=== PATIENT | female | born 1960 | race Caucasian/White ===

== ENCOUNTER → 2021-07-30 10:35 | Outpatient (CLI) | payer OTHER, SELFPAY ==
[2021-07-30 11:37] LABS: Hemoglobin A1C% w Est Avg Glu 5.8 % (4.0-6.0)
[2021-07-30 12:00] LABS: Alanine Aminotransferase 22 IU/L (<35); Albumin 4.6 g/dL (3.5-5.0); Albumin Globulin Ratio 1.4 (1.0-2.8); Alkaline Phosphatase 82 U/L (38-126); Aspartate Aminotransferase 28 IU/L (14-36); BUN Creatinine Ratio 21.7 (6-22); Bilirubin Total 0.4 mg/dL (0.2-1.3); Blood Urea Nitrogen 13 mg/dL (7-17); Calcium 9.8 mg/dL (8.4-10.2); Carbon Dioxide 33 mmol/L (22-32); Chloride 102 mmol/L (98-107); Cholesterol 215 mg/dL (140-199); Estimated Glomerular Filt Rate > 60.0 mL/min (>60); Globulin 3.2 g/dL (1.7-4.1); Glucose 95 mg/dL (80-110); HDL Cholesterol 41 mg/dL (40-60); HEMOLYSIS < 15 (0-50); LDL Cholesterol Calculated 153 mg/dL (<100); Potassium 5.3 mmol/L (3.4-5.1); Sodium 140 mmol/L (137-145); Total Protein 7.8 g/dL (6.3-8.2); Triglycerides 106 mg/dL (35-150)
[2021-07-30 12:21] LABS: Free T4, Direct Thyroxine 0.99 ng/dL (0.78-2.19)
[2021-07-30 12:35] LABS: Thyroid Stimulating Hormone 0.491 uIU/mL (0.47-4.68)
== END ==
PROVIDERS: PCP Internal Medicine; Referring Provider Internal Medicine; Visit Provider Internal Medicine
DX: E03.9 Hypothyroidism, unspecified (principal); E11.9 Type 2 diabetes mellitus without complications; G89.29 Other chronic pain; I10 Essential (primary) hypertension; M54.9 Dorsalgia, unspecified
CPT/HCPCS: 36415; 80053; 80061; 83036; 84439; 84443

== ENCOUNTER → 2021-08-03 13:46 | Outpatient (CLI) | payer OTHER, SELFPAY ==
[2021-08-03 15:11] LABS: COVID19 -Nasal RAPID Negative (Negative)
== END ==
PROVIDERS: PCP Internal Medicine; Visit Provider Family Medicine Sleep Medicine
DX: Z20.822 Contact with and (suspected) exposure to COVID-19 (principal)
CPT/HCPCS: 87635; C9803

== ENCOUNTER → 2021-08-06 07:07 | Day surgery (SDC) | payer OTHER, SELFPAY ==
--- NOTE | 2021-08-06 | PATH_ITS ---
[facility] Accession Number: [id number] . 01 Material submitted: . PART A: hepatic flexure - HEPATIC FLEXURE COLON POLYP PART B: rectum - RECTAL POLYP . 02 Diagnosis: A. Colon Polyp, Hepatic Flexure, Biopsy: Serrated lesion, favor sessile serrated adenoma. . B. Rectal Polyp, Biopsy: Hyperplastic polyp. BFI 08/08/2021 1535 Local . 02 Electronically signed: . David Porter MD, PhD, Pathologist NPI- [id number] . 01 Gross description: . Part A: HEPATIC FLEXURE COLON POLYP: Received in formalin is 1 fragment(s) of montoya, soft tissue measuring 0.2 x 0.2 x 0.1 cm submitted entirely in 1 cassette(s) Part B: RECTAL POLYP: Received in formalin is 1 fragment(s) of montoya, soft tissue measuring 0.2 x 0.1 x 0.1 cm submitted entirely in 1 cassette(s) /CPE 08/07/2021 1116 Local . 02 Pathologist provided ICD-10: D12.3, K62.1 . 02 CPT . 757640, [id number] Specimen Comment: A courtesy copy of this report has been sent to [facility] Performed at: [address] [facility] [address], [place], [place] [id number] MD Yordan Grajeda MD Phone: [phone] Performed at: 02 [facility] [address] [place], [place] [id number] MD Patricia Malloy MD Phone: [phone]
[2021-08-06 07:27] VITALS: BP 172/93; PULSE 83; RESP 18; TEMP 36.8; O2SAT 99; BMI 33.4
[2021-08-06] MEDS: SODIUM CHLORIDE 0.9% 1,000 ML 84 ML IV (07:48)
--- NOTE | 2021-08-06 08:05 | PM.HP.1 ---
History of Present Illness History of Present Illness Date Patient Seen: 08/06/21 Time Patient Seen: 08:06 Chief complaint: DX COLONOSCOPY Narrative: Personal history of colon polyps and rectal carcinoid Patient History Medical History Abnormal Pap smear of cervix Allergies Chicken pox Chronic back pain (~2016) Diabetes mellitus (~05/2020) Foot pain (~2016) H/O adenomatous polyp of colon Hearing loss Hypertension (~2020) Hyperthyroidism Hypothyroidism Kidney stones (~2004) Recurrent sinusitis Restless leg syndrome Sleep apnea (~2015) Surgical History Anesthesia History of lumbosacral spine surgery (~06/19/20) Family & Social History Family History Father Mental health problem Brother Cancer Grandfather History of heart disease Social History: household members spouse Tobacco & Substance use: Smoking Status Current every day smoker alcohol intake never Substance Use Type marijuana Meds Home Medications and Allergies Home Medications Medication Instructions Recorded Confirmed Type metformin 500 mg tablet 500 mg PO BID #180 tab 08/03/21 08/06/21 Rx Allergies Allergy/AdvReac Type Severity Reaction Status Date / Time sulfamethoxazole Allergy Severe Hives Verified 08/06/21 07:16 [From Septra] trimethoprim [From Septra] Allergy Severe Hives Verified 08/06/21 07:16 Erythromycin AdvReac Intermediate GI Upset Uncoded 08/06/21 07:16 Review of Systems Review of Systems ROS: Yes All systems reviewed with the patient and are negative except as otherwise documented Exam Vital Signs (past 8 hours): - 08/06/21 07:27 Temperature 98.3 F Pulse Rate 83 Respiratory Rate 18 Blood Pressure 172/93 H Pulse Oximetry 99 Oxygen Delivery Method Room Air Const General: cooperative and comfortable Orientation: alert HENMT Head: normocephalic Ears: external ears normal Nose: external nose normal Face and sinus: normal facial exam Mouth: oral mucosae normal Eyes General: appearance normal, both eyes and all related structures Neck Neck: normal visual inspection Chest Chest: normal inspection of the chest Cardio Rate: regular rate GI Inspection: normal to inspection Skin General: no rashes or lesions noted and No jaundice Neuro General: patient alert and moves all extremities Cognition: normal cognition Speech: speech normal Extrem General: no pedal edema Psych Appearance: grossly normal Assessment & Plan Assessment & Plan narrative: 61-year-old female with a polyp history and rectal carcinoid history. Repeat colonoscopy is pursued today. Time Spent With Patient Critical Care time: I spent a total of [] minutes of critical care time on this patient's care today; this time is exclusive of procedural time.
--- NOTE | 2021-08-06 08:07 | PM.PREOP ---
Pre-operative Note COVID-19 COVID-19 status: Negative Result date/Date tested (Pos, Neg/Pending): 08/03/21 Criteria for continued procedure: Possibility delay results in more complex future surgery or treatment Interval Note History & Physical reviewed/Exam performed by Physician: Yes Changes to H&P: Yes ASA Class (for procedural sedation): II
--- NOTE | 2021-08-06 09:28 | P.OP.COLON_ITS ---
Operative Date/Time/Diagnoses Date of procedure: 08/06/21 Time of procedure: 09:28 Pre-op diagnosis: Colon polyps and a history of low-grade rectal carcinoid Post-op diagnosis: same Procedure & Clinicians Study performed: Colonoscopy with cold forceps polypectomy Same procedure as scheduled: Yes Indications: Colon polyps and low-grade small rectal carcinoid Surgeon: Mickey Bonds Procedure Notes SCOAP/Timeout: Done Procedure in detail: After the risks and benefits were explained, written and verbal informed consent was obtained. The patient was brought into the procedure room and placed into the left lateral decubitus position. Please see nurse nursing information systems coordinator notes for sedation details. Digital rectal examination was accomplished. The scope was introduced into the patient and advanced under direct visualization to the cecum as identified by the appendiceal orifice and ileocecal valve. The scope was slowly withdrawn to carefully examine the mucosa for any defects or lesions. Comprehensive imaging was accomplished throughout the rectum including the dentate line. The colon was decompressed, the scope was then removed from the patient who tolerated the procedure well. Bowel prep fair Pediatric colonoscope Scope withdrawal time: 9 minutes Sedation minutes: 22 Complications: none Impression: I did not appreciate any evidence of recurrent or residual rectal carcinoid. There was a very small polyp in the distal rectum that was addressed with cold forceps this measured in maximum dimension 4 mm. In the region of the hepatic flexure there was another 4-5 mm diminutive polyp that was removed with cold forceps. Within the limitations of bowel prep I did not see any additional pathology. Terminal ileum was interrogated and appeared normal. Endoscopic diagnosis 1. Diminutive rectal polyp 2. Diminutive hepatic flexure polyp Post-procedure Plan for aftercare: 1. Await histopathology 2. Considering personal history of adenomatous colon polyps and the only fair prep today, repeat colonoscopy would be suggested for 3 years. Disposition: PACU
[2021-08-06 09:29] VITALS: BP 112/66; PULSE 71; RESP 16; TEMP 36.8; O2SAT 98
[2021-08-06 09:35] VITALS: BP 108/63; PULSE 68; RESP 16; TEMP 36.4; O2SAT 98
[2021-08-06 09:40] VITALS: BP 125/64; PULSE 70; RESP 16; O2SAT 98
[2021-08-06 09:46] VITALS: BP 130/72; PULSE 77; RESP 16; TEMP 36.4; O2SAT 100
== END | disposition home or self-care (01) ==
PROVIDERS: PCP Internal Medicine; Referring Provider Internal Medicine Gastroenterology; Visit Provider Internal Medicine Gastroenterology
PROC: 0DJD8ZZ Inspection of Lower Intestinal Tract, Via Natural or Artificial Opening Endoscopic (ICD-10-PCS; CPT 45378; principal; 2021-08-06 09:00)
DX: Z12.11 Encounter for screening for malignant neoplasm of colon (principal); Z86.010 Personal history of colon polyps; Z85.040 Personal history of malignant carcinoid tumor of rectum; I10 Essential (primary) hypertension; G47.33 Obstructive sleep apnea (adult) (pediatric); G25.81 Restless legs syndrome; E11.9 Type 2 diabetes mellitus without complications; F17.210 Nicotine dependence, cigarettes, uncomplicated; Z79.84 Long term (current) use of oral hypoglycemic drugs; D12.3 Benign neoplasm of transverse colon; K62.1 Rectal polyp
CPT/HCPCS: 45380

== ENCOUNTER → 2021-11-28 11:11 | Outpatient (CLI) | payer OTHER, SELFPAY ==
[2021-11-28 11:52] LABS: Hemoglobin A1C% w Est Avg Glu 6.1 % (4.0-6.0)
[2021-11-28 12:38] LABS: BUN Creatinine Ratio 21.2 (6-22); Blood Urea Nitrogen 11 mg/dL (7-17); Calcium 9.2 mg/dL (8.4-10.2); Carbon Dioxide 29 mmol/L (22-32); Chloride 102 mmol/L (98-107); Estimated Glomerular Filt Rate > 60 mL/min (>60); Glucose 130 mg/dL (80-110); HEMOLYSIS < 15 (0-50); Potassium 4.4 mmol/L (3.4-5.1); Sodium 139 mmol/L (137-145)
== END ==
PROVIDERS: PCP Internal Medicine; Referring Provider Internal Medicine; Visit Provider Internal Medicine
DX: E11.9 Type 2 diabetes mellitus without complications (principal); I10 Essential (primary) hypertension
CPT/HCPCS: 36415; 80048; 83036

== ENCOUNTER → 2022-04-04 12:04 | Outpatient (CLI) | payer OTHER, SELFPAY ==
[2022-04-04 12:41] LABS: BUN Creatinine Ratio 23.1 (6-22); Blood Urea Nitrogen 12 mg/dL (7-17); Calcium 9.3 mg/dL (8.4-10.2); Carbon Dioxide 29 mmol/L (22-32); Chloride 99 mmol/L (98-107); Estimated Glomerular Filt Rate > 60 mL/min (>60); Glucose 129 mg/dL (80-110); HEMOLYSIS < 15 (0-50); Potassium 4.3 mmol/L (3.4-5.1); Sodium 138 mmol/L (137-145)
[2022-04-04 12:47] LABS: Hemoglobin A1C% w Est Avg Glu 6.8 % (4.0-6.0)
== END ==
PROVIDERS: PCP Internal Medicine; Referring Provider Internal Medicine; Visit Provider Internal Medicine
DX: E11.65 Type 2 diabetes mellitus with hyperglycemia (principal)
CPT/HCPCS: 36415; 80048; 83036

== ENCOUNTER → 2022-05-27 13:37 | Outpatient (CLI) | payer OTHER, SELFPAY ==
--- NOTE | 2022-05-27 | DI.RAD.S_ITS ---
PROCEDURE: XR LUMBAR SPINE MIN 4V INDICATIONS: LOW BACK PAIN TECHNIQUE: 5 views of the lumbar spine were acquired, including bilateral oblique views. COMPARISON: None. FINDINGS: Bones: 5 nonrib-bearing vertebrae are present. There is trace retrolisthesis of L2 on L3, L3 on L4. Posterior fusion is present from L4 through S1. No visualized hardware fracture. Foraminal narrowing is present at L5-S1.. No vertebral body compression fractures. No suspicious bony lesions. Soft tissues: Overlying bowel gas pattern is normal. No suspicious soft tissue calcifications. Oblique images: No pars defects. IMPRESSION: Postsurgical and degenerative changes as above. Dictated by: Kandy Robles M.D. on 05/27/2022 at 16:15 Approved by: Kandy Robles M.D. on 05/27/2022 at 16:16
== END ==
PROVIDERS: PCP Internal Medicine; Referring Provider Orthopaedic Surgery; Visit Provider Orthopaedic Surgery
DX: M48.07 Spinal stenosis, lumbosacral region (principal); M54.50 Low back pain, unspecified; Z98.1 Arthrodesis status
CPT/HCPCS: 72110

== ENCOUNTER → 2022-07-15 13:35 | Outpatient (CLI) | payer OTHER, SELFPAY ==
[2022-07-15 14:11] LABS: Blood Urea Nitrogen 14 mg/dL (7-17); Calcium 9.2 mg/dL (8.4-10.2); Carbon Dioxide 26 mmol/L (22-32); Chloride 98 mmol/L (98-107); Cholesterol 256 mg/dL (140-199); Estimated Glomerular Filt Rate > 60 mL/min (>60); Glucose 150 mg/dL (80-110); HDL Cholesterol 43 mg/dL (40-60); HEMOLYSIS < 15 (0-50); Hemoglobin A1C% w Est Avg Glu 7.2 % (4.0-6.0); LDL Cholesterol Calculated 176 mg/dL (<100); Potassium 4.4 mmol/L (3.4-5.1); Sodium 137 mmol/L (137-145); Triglycerides 184 mg/dL (35-150)
[2022-07-15 16:34] LABS: Microalbumin Urine Random 1.2 mg/dL (0-1.6)
[2022-07-15 16:41] LABS: Creatinine Urine Random 138.8 mg/dL; Microalbumi Creatinin Ratio Ur 8.6 ug/mg CR (<30)
== END ==
PROVIDERS: PCP Internal Medicine; Referring Provider Internal Medicine; Visit Provider Internal Medicine
DX: E11.9 Type 2 diabetes mellitus without complications (principal); I10 Essential (primary) hypertension; Z13.6 Encounter for screening for cardiovascular disorders
CPT/HCPCS: 36415; 80048; 80061; 82043; 82570; 83036

== ENCOUNTER → 2022-08-23 09:51 | Outpatient (CLI) | payer OTHER, SELFPAY ==
--- NOTE | 2022-08-23 09:53 | DI.MG.S_ITS ---
BILATERAL DIGITAL SCREENING MAMMOGRAM 3D/2D WITH CAD: 08/23/2022 CLINICAL: Routine screening. Comparison is made to exam dated: 10/05/2020 mammogram - outside location. Both breasts are almost entirely fatty (category a/<25% glandular tissue). Current study was also evaluated with a Computer Aided Detection (CAD) system. No significant masses, calcifications, or other findings are seen in either breast. There has been no significant interval change. IMPRESSION: NEGATIVE There is no mammographic evidence of malignancy. A 1 year screening mammogram is recommended. Based on the Tyrer Cuzick model (a risk assessment model) the patient's lifetime risk is 4.0% and her 10 year risk is 1.6%. According to the ACR, ACS, and NCCN guidelines, an annual breast MRI exam along with mammogram is recommended if the patient's lifetime risk is 20% or greater. This exam was interpreted at Station ID: [id number]. NOTE: For mammograms, a report in lay terms will be sent to the patient. Approximately 15% of breast malignancies will not be visualized mammographically. In the management of a palpable breast mass, a negative mammogram must not discourage biopsy of a clinically suspicious lesion. Electronically Signed By: Anjel garza/hans:08/23/2022 15:53:46 letter sent: Normal Exam ACR BI-RADS Category 1: Negative [id number]
--- NOTE | 2022-08-23 09:53 | DI.US.S_ITS ---
PROCEDURE: US ABDOMEN LIMITED INDICATIONS: RIGHT UPPER QUADRANT PAIN TECHNIQUE: Real-time scanning was performed of the abdominal and retroperitoneal organs, with image documentation. COMPARISON: None. FINDINGS: Liver: Increased liver echogenicity with posterior attenuation, most consistent with moderate to severe steatosis. Gallbladder: Unremarkable. Biliary ducts: Intrahepatic bile ducts are non-dilated. Extrahepatic bile duct caliber measures 3 mm. Normal is 6-7 mm or less in diameter, or 10 mm or less post-cholecystectomy. Pancreas: Visualized portions of the pancreas are sonographically normal. IMPRESSION: [id number] hepatic steatosis. No findings to explain the patient's right upper quadrant pain. Dictated by: Adryan Smith M.D. on 08/23/2022 at 12:04 Approved by: Adryan Smith M.D. on 08/23/2022 at 12:05
== END ==
PROVIDERS: PCP Internal Medicine; Referring Provider Internal Medicine; Visit Provider Internal Medicine
DX: Z12.31 Encounter for screening mammogram for malignant neoplasm of breast (principal); K76.0 Fatty (change of) liver, not elsewhere classified; R10.11 Right upper quadrant pain
CPT/HCPCS: 76705; 77063; 77067

== ENCOUNTER → 2022-10-11 09:20 | Outpatient (CLI) | payer OTHER, SELFPAY ==
[2022-10-11 10:07] LABS: Alanine Aminotransferase 44 IU/L (<35); Albumin 4.1 g/dL (3.5-5.0); Albumin Globulin Ratio 1.5 (1.0-2.8); Alkaline Phosphatase 128 U/L (38-126); Aspartate Aminotransferase 35 IU/L (14-36); BUN Creatinine Ratio 22.7 (6-22); Bilirubin Total 0.3 mg/dL (0.2-1.3); Blood Urea Nitrogen 10 mg/dL (7-17); Calcium 9.2 mg/dL (8.4-10.2); Carbon Dioxide 29 mmol/L (22-32); Chloride 100 mmol/L (98-107); Cholesterol 137 mg/dL (140-199); Estimated Glomerular Filt Rate > 60 mL/min (>60); Globulin 2.7 g/dL (1.7-4.1); Glucose 190 mg/dL (80-110); HDL Cholesterol 41 mg/dL (40-60); HEMOLYSIS < 15 (0-50); LDL Cholesterol Calculated 75 mg/dL (<100); Sodium 138 mmol/L (137-145); Total Protein 6.8 g/dL (6.3-8.2); Triglycerides 103 mg/dL (35-150)
[2022-10-12 03:40] LABS: Labcorp Hemoglobin (Hb) A1c 8.5 % (4.8-5.6)
== END ==
PROVIDERS: PCP Internal Medicine; Referring Provider Internal Medicine; Visit Provider Internal Medicine
DX: E11.9 Type 2 diabetes mellitus without complications (principal); E78.2 Mixed hyperlipidemia; I10 Essential (primary) hypertension
CPT/HCPCS: 36415; 80053; 80061; 83036

== ENCOUNTER → 2023-01-09 11:16 | Outpatient (CLI) | payer OTHER, SELFPAY ==
[2023-01-09 13:41] LABS: BUN Creatinine Ratio 15.9 (6-22); Blood Urea Nitrogen 7 mg/dL (7-17); Calcium 9.1 mg/dL (8.4-10.2); Carbon Dioxide 30 mmol/L (22-32); Chloride 99 mmol/L (98-107); Estimated Glomerular Filt Rate > 60 mL/min (>60); Glucose 157 mg/dL (80-110); HEMOLYSIS < 15 (0-50); Potassium 4.8 mmol/L (3.4-5.1); Sodium 137 mmol/L (137-145)
[2023-01-10 09:17] LABS: Labcorp Hemoglobin (Hb) A1c 8.3 % (4.8-5.6)
== END ==
PROVIDERS: PCP Internal Medicine; Referring Provider Internal Medicine; Visit Provider Internal Medicine
DX: E11.9 Type 2 diabetes mellitus without complications (principal); E78.2 Mixed hyperlipidemia; I10 Essential (primary) hypertension
CPT/HCPCS: 36415; 80048; 83036

== ENCOUNTER → 2023-04-11 10:31 | Outpatient (CLI) | payer OTHER, SELFPAY ==
[2023-04-11 11:42] LABS: Hemoglobin A1C% w Est Avg Glu 8.5 % (4.0-6.0)
[2023-04-11 11:48] LABS: Alanine Aminotransferase 59 IU/L (<35); Albumin 4.2 g/dL (3.5-5.0); Albumin Globulin Ratio 1.4 (1.0-2.8); Alkaline Phosphatase 105 U/L (38-126); Aspartate Aminotransferase 56 IU/L (14-36); BUN Creatinine Ratio 25.5 (6-22); Bilirubin Total 0.4 mg/dL (0.2-1.3); Blood Urea Nitrogen 12 mg/dL (7-17); Calcium 9.6 mg/dL (8.4-10.2); Carbon Dioxide 28 mmol/L (22-32); Chloride 102 mmol/L (98-107); Cholesterol 132 mg/dL (140-199); Estimated Glomerular Filt Rate > 60 mL/min (>60); Glucose 187 mg/dL (80-110); HDL Cholesterol 33 mg/dL (40-60); HEMOLYSIS < 15 (0-50); LDL Cholesterol Calculated 76 mg/dL (<100); Potassium 4.4 mmol/L (3.4-5.1); Sodium 138 mmol/L (137-145); Total Protein 7.2 g/dL (6.3-8.2); Triglycerides 114 mg/dL (35-150)
[2023-04-11 12:17] LABS: TSH w/ Reflex to FT4 0.32 uIU/mL (0.47-4.68)
[2023-04-11 12:45] LABS: Free T4, Direct Thyroxine 1.02 ng/dL (0.78-2.19)
== END ==
PROVIDERS: PCP Internal Medicine; Referring Provider Internal Medicine; Visit Provider Internal Medicine
DX: E78.2 Mixed hyperlipidemia (principal); E11.9 Type 2 diabetes mellitus without complications; I10 Essential (primary) hypertension
CPT/HCPCS: 36415; 80053; 80061; 83036; 84439; 84443

== ENCOUNTER → 2023-07-16 12:38 | Outpatient (CLI) | payer OTHER, SELFPAY ==
[2023-07-16 13:24] LABS: Hemoglobin A1C% w Est Avg Glu 8.1 % (4.0-6.0)
[2023-07-16 18:42] LABS: BUN Creatinine Ratio 31.1 (6-22); Blood Urea Nitrogen 14 mg/dL (7-17); Calcium 9.6 mg/dL (8.4-10.2); Carbon Dioxide 26 mmol/L (22-32); Chloride 102 mmol/L (98-107); Estimated Glomerular Filt Rate > 60 mL/min (>60); Glucose 175 mg/dL (80-110); HEMOLYSIS < 15 (0-50); Potassium 4.2 mmol/L (3.4-5.1); Sodium 137 mmol/L (137-145)
== END ==
LOC: LAB 12:38
PROVIDERS: PCP Internal Medicine; Referring Provider Internal Medicine; Visit Provider Internal Medicine
DX: E11.9 Type 2 diabetes mellitus without complications (principal); E78.2 Mixed hyperlipidemia; I10 Essential (primary) hypertension
CPT/HCPCS: 36415; 80048; 83036

== ENCOUNTER 2023-08-11 13:03 | Emergency (ER) | payer OTHER, SELFPAY ==
[2023-08-11] VITALS (7 sets, daily range): BP systolic 132–173; BP diastolic 63–79; PULSE 72–112; RESP 16–20; TEMP 36.7–36.9; O2SAT 95–98; BMI 37.5
[2023-08-11 13:53] LABS: Add Manual Diff / Slide Review NO; Basophils Absolute Auto 100 /uL (0-100); Basophils Percent Auto 0.5 % (0-2); Eosinophils Absolute Auto 100 /uL (0-450); Eosinophils Percent Auto 1.3 % (2-4); Hematocrit 43.1 % (36-46); Hemoglobin 14.5 g/dL (12.0-16.0); Lymphocytes Absolute Auto 3200 /uL (1100-4500); Lymphocytes Percent Auto 28.3 % (25-40); Mean Corpuscular HGB Conc 33.6 % (30-36); Mean Corpuscular Hemoglobin 29.7 PG (26-34); Mean Corpuscular Volume 88.3 fL (80-100); Monocytes Absolute Auto 700 /uL (0-900); Monocytes Percent Auto 6.3 % (3-14); Neutrophils Absolute Auto 7200 /uL (1500-7000); Neutrophils Percent Auto 63.6 % (50-75); Platelet Count 279 X10^3/uL (150-400); Red Blood Cell Count 4.88 X10^6/uL (4.0-5.2); Red Cell Distribution Width 13.2 % (11.6-14.8); White Blood Cell Count 11.3 X10^3/uL (4.5-11.0)
[2023-08-11 13:57] LABS: Alanine Aminotransferase 51 IU/L (<35); Albumin 4.5 g/dL (3.5-5.0); Albumin Globulin Ratio 1.3 (1.0-2.8); Alkaline Phosphatase 115 U/L (38-126); Aspartate Aminotransferase 54 IU/L (14-36); BUN Creatinine Ratio 22.9 (6-22); Bilirubin Total 0.7 mg/dL (0.2-1.3); Blood Urea Nitrogen 11 mg/dL (7-17); Calcium 9.6 mg/dL (8.4-10.2); Carbon Dioxide 27 mmol/L (22-32); Chloride 100 mmol/L (98-107); Estimated Glomerular Filt Rate > 60 mL/min (>60); Globulin 3.4 g/dL (1.7-4.1); Glucose 193 mg/dL (80-110); HEMOLYSIS < 15 (0-50); Lipase 65 U/L (23-300); Potassium 4.7 mmol/L (3.4-5.1); Sodium 137 mmol/L (137-145); Total Protein 7.9 g/dL (6.3-8.2)
[2023-08-11] MEDS: ONDANSETRON 4 MG ODT PO (13:57)
--- NOTE | 2023-08-11 14:04 | DI.US.S_ITS ---
PROCEDURE: US ABDOMEN LIMITED INDICATIONS: RIGHT UPPER QUADRANT PAIN TECHNIQUE: Real-time scanning was performed of the abdominal and retroperitoneal organs, with image documentation. COMPARISON: [facility], , US ABDOMEN LIMITED, 08/23/2022, 10:01. FINDINGS: Liver: Liver is enlarged measuring 19.1 cm. Liver is severely increased in echogenicity, consistent with hepatic steatosis. Limited evaluation of the liver secondary to echogenicity Gallbladder: No gallstones. No wall thickening. No pericholecystic edema. Negative sonographic Ruiz's sign. Biliary ducts: Not well seen secondary to overlying bowel gas. Pancreas: Pancreatic head lesion measuring 0.8 x 1.3 x 1.1 cm. Miscellaneous: No free abdominal fluid. IMPRESSION: 1. No cause for patient's pain. The gallbladder is within normal limits. 2. Severe hepatic steatosis with hepatomegaly. 3. Pancreatic head lesion measuring 1.3 cm. Recommend further evaluation with nonemergent pancreatic protocol MRI or CT. Dictated by: Jermain Mccormack M.D. on 08/11/2023 at 15:36 Approved by: Jermain Mccormack M.D. on 08/11/2023 at 15:38
[2023-08-11] MEDS: KETOROLAC 30 MG/ML VIAL 15 MG IV (14:07)
--- NOTE | 2023-08-11 14:13 | ED_ITS ---
HPI - Abdominal Pain <Esteban Dover PA-C - Last Filed: 08/11/23 17:20> General Chief Complaint: Abdominal Pain Stated Complaint: abd pain sent by [facility] Time Seen by Provider: 08/11/23 13:42 History of Present Illness HPI narrative: 63-year-old female with past medical history diabetes, hyperlipidemia, hypertension, obstructive sleep apnea presents to the ED with 3 weeks of worsening right upper quadrant pain. Patient states that she has had brief episodes of right upper quadrant pain in the past, however they just calm down spontaneously. However, this time around patient states that the pain has steadily worsened over the last 3 weeks. Patient states that the pain gets severe about 20 minutes after she eats. Patient states she has just been eating some crackers over the last 2 days to avoid the pain. Patient also endorses nausea, denies vomiting. Patient denies fever, chills, chest pain, shortness of breath, dysuria, constipation, diarrhea, hematochezia, melena, lightheadedness, dizziness, syncope. Patient denies any intra-abdominal surgeries. Related Data Home Medications Medication Instructions Recorded Confirmed multivitamin 1 tab PO DAILY 04/08/22 08/11/23 Previous Rx's Medication Instructions Recorded losartan 50 mg tablet 50 mg PO DAILY #90 tabs 04/28/23 atorvastatin 40 mg tablet 40 mg PO DAILY #90 tabs 07/02/23 glipizide 10 mg tablet, extended 10 mg PO BID #180 tabs 07/18/23 release 24 hr Allergies Allergy/AdvReac Type Severity Reaction Status Date / Time sulfamethoxazole Allergy Severe Hives Verified 08/11/23 12:33 [From ] trimethoprim [From ] Allergy Severe Hives Verified 08/11/23 12:33 lisinopril AdvReac Intermediate Cough Verified 08/11/23 12:33 metformin AdvReac Intermediate Nausea Verified 08/11/23 12:33 Erythromycin AdvReac Intermediate GI Upset Uncoded 08/11/23 12:33 Review of Systems <Esteban Dover PA-C - Last Filed: 08/11/23 17:20> Constitutional Constitutional: Denies chills, Denies fatigue, Denies fever(s), Denies frequent falls, Denies lethargy and Denies weakness Eyes Eyes: Denies change in vision, Denies eye discharge, Denies irritation and Denies loss of vision ENT Ears, Nose, Mouth, and Throat: Denies change in voice, Denies dizziness, Denies neck pain, Denies sore throat and Denies throat swelling Cardiovascular Cardiovascular: Denies chest pain, Denies irregular heart rhythm, Denies lightheadedness, Denies palpitations, Denies dyspnea, Denies dyspnea on exertion and Denies orthopnea Respiratory Respiratory: Denies cough, Denies dyspnea, Denies dyspnea on exertion and Denies wheezing Gastrointestinal Gastrointestinal: Reports abdominal pain, Denies change in bowel habits, Denies diarrhea, Reports nausea and Denies vomiting Musculoskeletal Musculoskeletal: Denies neck pain and Denies numbness Integumentary/Breasts Skin/Breast: Denies pruritus, Denies erythema, Denies rash and Denies wounds Neurologic Neurologic: Denies behavioral changes, Denies confusion, Denies dizziness, Denies frequent falls, Denies loss of vision, Denies numbness and Denies weakness Psychiatric Psychiatric: Denies anxiety, Denies behavioral changes, Denies confusion, Denies depression, Denies homicidal ideation and Denies suicidal ideation Endocrine Endocrine: Denies fatigue, Denies flushing and Denies palpitations Hematologic/Lymphatic Hematologic/Lymphatic: Denies easy bruising Allergic/Immunologic Allergic/Immunologic: Denies urticaria, Denies throat swelling and Denies wheezing Patient History <Esteban Dover PA-C - Last Filed: 08/11/23 17:20> Medical History Mixed hyperlipidemia Obstructive sleep apnea Uncontrolled type 2 diabetes mellitus with hyperglycemia H/O adenomatous polyp of colon Hearing loss Allergies Restless leg syndrome Foot pain (~2016) Chronic back pain (~2016) Chicken pox Recurrent sinusitis Abnormal Pap smear of cervix Kidney stones (~2004) Diabetes mellitus (~05/2020) Hypothyroidism Hyperthyroidism Hypertension (~2020) Surgical History Anesthesia History of lumbosacral spine surgery (~06/19/20) Family History Father Mental health problem Brother Cancer Grandfather History of heart disease Social History household members: spouse Smoking Status: Current every day smoker alcohol intake: never Smoking Status: Current every day smoker alcohol intake frequency: other Substance Use Type: does not use Exam <RJ Hall Last Filed: 08/11/23 17:20> Narrative Exam Narrative: Const General:?cooperative, healthy appearing and comfortable [facility] Head:?normal to inspection Ears:?hearing grossly normal bilaterally Nose:?external nose normal Face and sinus:?normal facial exam and sinuses nontender Mouth:?oral mucosae normal Throat:?posterior oropharynx normal Eyes General:?appearance normal, both eyes and all related structures Neck Neck:?normal visual inspection and no lymphadenopathy noted Resp Effort & Inspection:?normal respiratory effort Auscultation:?clear to auscultation bilaterally Cardio Rate:?regular rate Rhythm:?regular rhythm GI Abdomen is soft, nondistended. Abdomen is tender to palpation in the right upper quadrant. Neuro General:?patient alert, patient awake and patient oriented x3 Initial Vital Signs Initial Vital Signs: Vital Signs Temperature 98.5 F 08/11/23 13:08 Pulse Rate 112 H 08/11/23 13:08 Respiratory Rate 18 08/11/23 13:08 Blood Pressure 141/79 H 08/11/23 13:08 Pulse Oximetry 96 08/11/23 13:08 Oxygen Delivery Method Room Air 08/11/23 13:08 <Hailey Mejias DO - Last Filed: 08/12/23 07:26> Initial Vital Signs Initial Vital Signs: Vital Signs Temperature 98.5 F 08/11/23 13:08 Pulse Rate 112 H 08/11/23 13:08 Respiratory Rate 18 08/11/23 13:08 Blood Pressure 141/79 H 08/11/23 13:08 Pulse Oximetry 96 08/11/23 13:08 Oxygen Delivery Method Room Air 08/11/23 13:08 Course <Esteban Dover PA-C - Last Filed: 08/11/23 17:20> Orders Ordered: Discontinued Medications Al Hydrox/Mg Hydrox/Simethicone 20 ml/ Lidocaine HCl 15 ml 0 ml PO NOW ONE Stop: 08/11/23 17:05 Last Admin: 08/11/23 17:12 Dose: 35 ml Documented By: RB Famotidine (Famotidine 20 Mg Tablet) 40 mg PO NOW ONE Stop: 08/11/23 17:06 Last Admin: 08/11/23 17:12 Dose: 40 mg Documented By: RB Ketorolac Tromethamine (Ketorolac 30 Mg/Ml Vial) 15 mg IV NOW ONE Stop: 08/11/23 14:04 Last Admin: 08/11/23 14:07 Dose: 15 mg Documented By: NATY Ondansetron HCl (Ondansetron 4 Mg/2 Ml Inj) 4 mg IV NOW PRN PRN Reason: Nausea And Vomiting Ondansetron HCl (Ondansetron 4 Mg Odt) 4 mg PO NOW PRN PRN Reason: Nausea And Vomiting Last Admin: 08/11/23 13:57 Dose: 4 mg Documented By: NATY Vital Signs Vital signs: Vital Signs - 8 hr 08/11/23 13:08 08/11/23 14:11 08/11/23 14:39 Temperature 98.5 F Pulse Rate 112 H 82 84 Respiratory Rate 18 20 18 Blood Pressure 141/79 H 157/74 H 136/63 Pulse Oximetry 96 97 98 Oxygen Delivery Method Room Air Room Air Room Air 08/11/23 15:22 08/11/23 16:44 08/11/23 17:13 Temperature 98.1 F Pulse Rate 80 72 79 Respiratory Rate 20 16 20 Blood Pressure 132/63 173/72 H 154/70 H Pulse Oximetry 95 98 97 Oxygen Delivery Method Room Air Room Air Room Air <Hailey Mejias DO - Last Filed: 08/12/23 07:26> Orders Ordered: Discontinued Medications Al Hydrox/Mg Hydrox/Simethicone 20 ml/ Lidocaine HCl 15 ml 0 ml PO NOW ONE Stop: 08/11/23 17:05 Last Admin: 08/11/23 17:12 Dose: 35 ml Documented By: SAMIRA Famotidine (Famotidine 20 Mg Tablet) 40 mg PO NOW ONE Stop: 08/11/23 17:06 Last Admin: 08/11/23 17:12 Dose: 40 mg Documented By: RB Ketorolac Tromethamine (Ketorolac 30 Mg/Ml Vial) 15 mg IV NOW ONE Stop: 08/11/23 14:04 Last Admin: 08/11/23 14:07 Dose: 15 mg Documented By: NATY Ondansetron HCl (Ondansetron 4 Mg/2 Ml Inj) 4 mg IV NOW PRN PRN Reason: Nausea And Vomiting Ondansetron HCl (Ondansetron 4 Mg Odt) 4 mg PO NOW PRN PRN Reason: Nausea And Vomiting Last Admin: 08/11/23 13:57 Dose: 4 mg Documented By: NATY Vital Signs Vital signs: Vital Signs - 8 hr 08/11/23 13:08 08/11/23 14:11 08/11/23 14:39 Temperature 98.5 F Pulse Rate 112 H 82 84 Respiratory Rate 18 20 18 Blood Pressure 141/79 H 157/74 H 136/63 Pulse Oximetry 96 97 98 Oxygen Delivery Method Room Air Room Air Room Air 08/11/23 15:22 08/11/23 16:44 08/11/23 17:13 Temperature 98.1 F Pulse Rate 80 72 79 Respiratory Rate 20 16 20 Blood Pressure 132/63 173/72 H 154/70 H Pulse Oximetry 95 98 97 Oxygen Delivery Method Room Air Room Air Room Air MDM - Abdominal Pain <Esteban Dover PA-C - Last Filed: 08/11/23 17:20> Lab Data 08/11/23 13:35 08/11/23 13:35 Labs: Lab Results 08/11/23 Range/Units 13:35 WBC 11.3 H (4.5-11.0) X10^3/uL RBC 4.88 (4.0-5.2) X10^6/uL Hgb 14.5 (12.0-16.0) g/dL Hct 43.1 (36-46) % MCV 88.3 (80-100) fL MCH 29.7 (26-34) PG MCHC 33.6 (30-36) % RDW 13.2 (11.6-14.8) % Plt Count 279 (150-400) X10^3/uL Neut % (Auto) 63.6 (50-75) % Lymph % (Auto) 28.3 (25-40) % Sunflower % (Auto) 6.3 (3-14) % Eos % (Auto) 1.3 L (2-4) % Baso % (Auto) 0.5 (0-2) % Neut # (Auto) 7200 H (4655-8402) /uL Lymph # (Auto) 3200 (2917-4415) /uL Sunflower # (Auto) 700 (0-900) /uL Eos # (Auto) 100 (0-450) /uL Baso # (Auto) 100 (0-100) /uL Sodium 137 (137-145) mmol/L Potassium 4.7 (3.4-5.1) mmol/L Chloride 100 (98-107) mmol/L Carbon Dioxide 27 (22-32) mmol/L BUN 11 (7-17) mg/dL Creatinine 0.48 L (0.52-1.04) mg/dL Estimated GFR > 60 (>60) mL/min BUN/Creatinine Ratio 22.9 H (6-22) Glucose 193 H (80-110) mg/dL Calcium 9.6 (8.4-10.2) mg/dL Total Bilirubin 0.7 (0.2-1.3) mg/dL AST 54 H (14-36) IU/L ALT 51 H (<35) IU/L Alkaline Phosphatase 115 (38-126) U/L Total Protein 7.9 (6.3-8.2) g/dL Albumin 4.5 (3.5-5.0) g/dL Globulin 3.4 (1.7-4.1) g/dL Albumin/Globulin Ratio 1.3 (1.0-2.8) Lipase 65 (23-300) U/L Point of care testing: Urine Dip Bedside Urine Glucose Negative Bedside Urine Bilirubin - Negative Bedside Urine Ketone - Negative Urine Specific Wiggins 1.015 Bedside Urine Occult Blood - Negative Bedside Urine pH 6.0 Bedside Urine Protein - Negative Bedside Urine Urobilinogen - Negative Bedside Urine Nitrite - Negative Bedside Urine Leukocytes - Negative Esterase MDM Narrative Medical decision making narrative: 63-year-old female with past medical history diabetes, hyperlipidemia, hypertension, obstructive sleep apnea presents to the ED with 3 weeks of worsening right upper quadrant pain. Concern for biliary colic versus cholelithiasis versus cholecystitis versus pancreatitis versus gastritis versus peptic ulcer versus other intra-abdominal pathology versus other. Will obtain labs, UA, ultrasound abdomen. Will give Zofran, Toradol for symptoms. Will reassess. Labs and urine within normal limits. Ultrasound without acute findings. Ultrasound did note a pancreatic head lesion measuring 1.[address] was performed which shows a 1 cm hypoattenuating lesion in the pancreatic body without definite connection to the pancreatic duct and without ductal dilation. Findings favor a cystic lesion such as a pancreatic side branch IPMN, less likely solid mass such as adenocarcinoma. Differential does include interspace fat within the pancreatic parenchyma. Recommend outpatient pancreatic MRI for complete characterization. No other acute findings to explain patient's right upper quadrant pain. Patient was given GI cocktail, Pepcid AC, Zofran, Toradol for symptoms. Symptoms improved with medications. Discussed findings with patient. Recommend follow-up with PCP Dr. Garcia as soon as possible. Recommend trialing antacid and Pepcid AC for the next 2-4 weeks. ED return precautions discussed with patient. Patient verbalized understanding. Medical records reviewed: Yes <Hailey Mejias DO - Last Filed: 08/12/23 07:26> Lab Data Labs: Lab Results 08/11/23 Range/Units 13:35 WBC 11.3 H (4.5-11.0) X10^3/uL RBC 4.88 (4.0-5.2) X10^6/uL Hgb 14.5 (12.0-16.0) g/dL Hct 43.1 (36-46) % MCV 88.3 (80-100) fL MCH 29.7 (26-34) PG MCHC 33.6 (30-36) % RDW 13.2 (11.6-14.8) % Plt Count 279 (150-400) X10^3/uL Neut % (Auto) 63.6 (50-75) % Lymph % (Auto) 28.3 (25-40) % Sunflower % (Auto) 6.3 (3-14) % Eos % (Auto) 1.3 L (2-4) % Baso % (Auto) 0.5 (0-2) % Neut # (Auto) 7200 H (9549-9920) /uL Lymph # (Auto) 3200 (4633-5946) /uL Sunflower # (Auto) 700 (0-900) /uL Eos # (Auto) 100 (0-450) /uL Baso # (Auto) 100 (0-100) /uL Sodium 137 (137-145) mmol/L Potassium 4.7 (3.4-5.1) mmol/L Chloride 100 (98-107) mmol/L Carbon Dioxide 27 (22-32) mmol/L BUN 11 (7-17) mg/dL Creatinine 0.48 L (0.52-1.04) mg/dL Estimated GFR > 60 (>60) mL/min BUN/Creatinine Ratio 22.9 H (6-22) Glucose 193 H (80-110) mg/dL Calcium 9.6 (8.4-10.2) mg/dL Total Bilirubin 0.7 (0.2-1.3) mg/dL AST 54 H (14-36) IU/L ALT 51 H (<35) IU/L Alkaline Phosphatase 115 (38-126) U/L Total Protein 7.9 (6.3-8.2) g/dL Albumin 4.5 (3.5-5.0) g/dL Globulin 3.4 (1.7-4.1) g/dL Albumin/Globulin Ratio 1.3 (1.0-2.8) Lipase 65 (23-300) U/L Point of care testing: Urine Dip Bedside Urine Glucose Negative Bedside Urine Bilirubin - Negative Bedside Urine Ketone - Negative Urine Specific Wiggins 1.015 Bedside Urine Occult Blood - Negative Bedside Urine pH 6.0 Bedside Urine Protein - Negative Bedside Urine Urobilinogen - Negative Bedside Urine Nitrite - Negative Bedside Urine Leukocytes - Negative Esterase Discharge Plan Departure Patient Disposition: Home Clinical Impression: Abdominal pain Instructions: DI for Abdominal Pain-Adult Activity Restrictions/Additional Instructions: You were evaluated in the ED today for abdominal pain. Your labs and urine were normal. The CT scan shows a 1 cm lesion in the pancreas which could either be a cystic lesion versus adenocarcinoma versus interspace fat. It is unclear of the lesion is cancerous from the CT, you will need a MRI to further characterize the lesion. Please follow-up with Dr. Garcia as soon as possible for further evaluation. It is unclear if the lesion is causing the abdominal pain or if you might have some gastritis from stress that is causing the pain. You may take Pepcid AC twice daily for the next 2-4 weeks. You may also use some antacids such as Maalox. Return to the ED if you have worsening symptoms, persistent vomiting, fever, chills. Prescriptions: No Action losartan 50 mg tablet 50 mg PO DAILY Qty: 90 3RF atorvastatin 40 mg tablet 40 mg PO DAILY Qty: 90 3RF multivitamin Tablet 1 tab PO DAILY glipizide 10 mg tablet extended release 24hr 10 mg PO BID Qty: 180 3RF Referrals: Mundo Garcia MD [Primary Care Provider] - Stand Alone Forms: Patient Portal/API ED Sign-out <Hailey Mejias - Last Filed: 08/12/23 07:26> Cosign ED Attending Cosignature Attestation: I was immediately available in the department for consultation.
--- NOTE | 2023-08-11 15:49 | DI.CT.S_ITS ---
PROCEDURE: CT ABDOMEN WWO PELVIS W INDICATIONS: RUQ pain, ?pancreatic lesion TECHNIQUE: After the administration of oral contrast, 5 mm thick sections acquired from the diaphragms to the iliac crests. After the administration of intravenous contrast, 5 mm thick sections acquired from the diaphragms to the symphysis. 5 mm thick coronal and sagittal reformats were acquired. For radiation dose reduction, the following was used: automated exposure control, adjustment of mA and/or kV according to patient size. COMPARISON: [facility], , US ABDOMEN LIMITED, 08/11/2023, 14:45. FINDINGS: Image quality: Diagnostic. Lower Chest: No significant findings. ABDOMEN: Liver: No solid mass. Hepatic steatosis. Gallbladder: No radiopaque gallstones or wall thickening. Biliary ducts: No biliary dilation. Pancreas: 1 centimeter hypoattenuating lesion in the body of the pancreas (series 5, image 49). No definite connection to the pancreatic duct. No ductal dilation Spleen: Size is within normal limits. Adrenal Glands: No adrenal nodules. Kidneys and Ureters: No hydronephrosis. No solid mass. No complex renal cystic lesion which requires follow up. Punctate nonobstructing left-sided nephrolithiasis. Stomach and Bowel: Normal colonic caliber, without significant wall thickening. Colonic diverticulosis without evidence of diverticulitis. Peritoneum: No abnormal intraperitoneal fluid. No free air. Ventral Wall: No significant ventral hernia. Small umbilical hernia containing fat. Abdominal Nodes: No retroperitoneal or mesenteric adenopathy by size criteria. Vessels: Aorta and inferior vena cava are normal in size. PELVIS: Pelvic Organs: Unremarkable. Bladder: No bladder wall thickening, accounting for underdistention. Pelvic Nodes: No enlarged lymph nodes. Miscellaneous: No inguinal hernias are seen. Bones: No aggressive osseous abnormality. Posterior surgical fusion at L4 through S1, without hardware complication. IMPRESSION: 1 centimeter hypoattenuating lesion in the pancreatic body, without definite connection to the pancreatic duct and without ductal dilation. Findings favor a cystic lesion such as pancreatic side branch IPMN, less likely solid mass such as adenocarcinoma. Differential does include interspaced fat within the pancreatic parenchyma. Recommend outpatient pancreatic MRI for complete characterization. No findings to explain the patient's right upper quadrant pain. Normal gallbladder. No obstructing nephrolithiasis. Dictated by: Adryan Smith M.D. on 08/11/2023 at 16:40 Approved by: Adryan Smith M.D. on 08/11/2023 at 16:45
[2023-08-11] MEDS: FAMOTIDINE 20 MG TABLET 40 MG PO (17:12)
[2023-08-11] MEDS: MAG HYDROX/ALUMINUM/SIMETH SUS 20 ML, LIDOCAINE VISCOUS 2% 15 ML PO (17:12)
== END 2023-08-11 17:20 | disposition home or self-care (01) ==
PROVIDERS: Emergency Medicine; Emergency Provider Student in an Organized Health Care Education/Training Program; PCP Internal Medicine
DX: R10.11 Right upper quadrant pain (principal)
CPT/HCPCS: 36415; 74178; 76705; 80053; 81003; 83690; 85025; 93005; 96374; 99284; A9270; J1885; Q9967

== ENCOUNTER → 2023-08-13 18:28 | Outpatient (CLI) | payer OTHER, SELFPAY ==
--- NOTE | 2023-08-13 18:31 | DI.MRI.S_ITS ---
PROCEDURE: MR AB PANCREATIC/MRCP PROTOCOL INDICATIONS: 1cm hypoattenuating lesion in the pancreatic body TECHNIQUE: Coronal HASTE through the abdomen, axial 2-D FLASH in- and [id number], and breath-hold T2 FSE with fat saturation through the biliary system and pancreas. Oblique coronal and axial thin-slice HASTE, radial thick-slab HASTE centered on the extrahepatic bile ducts. Intravenous secretin: Not requested. COMPARISON: [facility], CT, CT ABDOMEN WWO PELVIS W, 08/11/2023, 16:01. FINDINGS: Image quality: Diagnostic. Gallbladder: No gallstones or wall thickening. Biliary ducts: No biliary dilation. Pancreas: No ductal dilation. A few cystic lesions within the pancreatic parenchyma, largest measuring 1 point 1 centimeters (series 5, image 21). The cystic lesions have close association to the pancreatic duct. No nodularity OTHER: Lung bases: Unremarkable. Liver: No solid mass. At least moderate hepatic steatosis. Spleen: Size is within normal limits. Adrenal Glands: No adrenal nodules. Kidneys and Ureters: No hydronephrosis. No solid mass. No complex renal cystic lesion which requires follow up. Stomach and Bowel: Normal colonic caliber, without significant wall thickening. Peritoneum: No abnormal intraperitoneal fluid. No free air. Ventral Wall: No hernia. Abdominal Nodes: No retroperitoneal or mesenteric adenopathy by size criteria. Vessels: Aorta and inferior vena cava are normal in size. Bones: No aggressive osseous abnormality. Surgical fusion of the lower lumbar spine. IMPRESSION: The previously described lesion in the pancreatic body corresponds to a side branch IPMN. Given patient age, yearly follow-up for a total of 5 years is recommended per consensus guidelines. At least moderate hepatic steatosis. Correlate with elevated liver enzymes, as findings could indicate steatohepatitis. Dictated by: Adryan Smith M.D. on 08/14/2023 at 8:42 Approved by: Adryan Smith M.D. on 08/14/2023 at 8:48
== END ==
LOC: MRI 18:30
PROVIDERS: PCP Internal Medicine; Referring Provider Internal Medicine; Visit Provider Internal Medicine
DX: K86.89 Other specified diseases of pancreas (principal); K76.0 Fatty (change of) liver, not elsewhere classified
CPT/HCPCS: 74183

== ENCOUNTER → 2023-10-15 12:27 | Outpatient (CLI) | payer OTHER, SELFPAY ==
[2023-10-15 13:50] LABS: BUN Creatinine Ratio 34.9 (6-22); Blood Urea Nitrogen 15 mg/dL (7-17); Calcium 9.7 mg/dL (8.4-10.2); Carbon Dioxide 29 mmol/L (22-32); Chloride 102 mmol/L (98-107); Estimated Glomerular Filt Rate > 60 mL/min (>60); Glucose 189 mg/dL (80-110); HEMOLYSIS < 15 (0-50); Potassium 4.1 mmol/L (3.4-5.1); Sodium 138 mmol/L (137-145)
[2023-10-15 14:18] LABS: Hemoglobin A1C% w Est Avg Glu 9.5 % (4.0-6.0)
== END ==
LOC: LAB 12:28
PROVIDERS: PCP Internal Medicine; Referring Provider Internal Medicine; Visit Provider Internal Medicine
DX: E11.9 Type 2 diabetes mellitus without complications (principal); I10 Essential (primary) hypertension; E78.2 Mixed hyperlipidemia
CPT/HCPCS: 36415; 80048; 83036

== ENCOUNTER → 2023-12-16 14:33 | Outpatient (CLI) | payer OTHER, SELFPAY ==
--- NOTE | 2024-01-14 16:50 | DIAB.INIT ---
Initial Diabetes Education Assessment Name: Courtney Rucker I Date: 12/16/23 Time: 315-410p Dx: Type II Diabetes Preferred Learning Style: Watching/Doing Courtney presents for initial Dm visit. Courtney is very tearful today due to feeling overwhelmed by DM diagnosis. 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 She has a lot of responsibility and reports feeling scared that if she dies her may not have adequate care. She has a worry that her T2Dm will turn to T1DM, which we did discuss at length does not happen, but she has fear that she will need insulin to manage her DM. Has h/o SE ith Metformin with 1 year of GI upset. H/o spinal steroid injections per report. States she feels steroids pushed her from preDM to T2DM. Has been rx'd Trulicity, howevershe reports she has not been able to take it due to access at the pharmacy. Called pharmacy today in clinic and they plan to order first intro dose of Trulicity. Some issue with getting next dose up per pharmacy. Diet recall: 12p: eggs, cheese, tomato, OJ x 8 oz 7-8p: veggies, protein water 24oz vitamin water zero 3x 16-20oz Avoiding bread, pasta. Choosing sweet potato. Physical Activity: Water aerobics 2x per week, workout 2x per week on treadmill and wts. Self-Monitoring Blood Glucose: None Diabetes Medications: Truclicity -- not taking Pertinent Labs: HGA1c: 8.1% 06/2023 9.5% 09/2023 Past Medical History: (Last Updated 10/17/23 @ 14:53 by Mundo Garcia MD) Abnormal Pap smear of cervix 37 years old Allergies BMI 37.0-37.9, adult Chicken pox Child Chronic back pain (~2016) Depression Diabetes mellitus (~05/2020) Foot pain (~2016) H/O adenomatous polyp of colon Hearing loss Need to get hearing checked Hypertension (~2020) Off and on Hyperthyroidism Hypothyroidism IPMN (intraductal papillary mucinous neoplasm) MRCP July 2023 Kidney stones (~2004) Mixed hyperlipidemia Obstructive sleep apnea Recurrent sinusitis Restless leg syndrome Uncontrolled type 2 diabetes mellitus with hyperglycemia Intervention: This participant was very receptive. Provided appropriate educational handouts. Discussed the following topics: Completed intake assessment. Discussed barriers to care. Pathophysiology of type 2 diabetes versus T1 HgA1c, its correlation to blood glucose numbers, and rationale for goal Plate Method, impact of macronutrients on blood sugar, meal timing, carbohydrate counting, pairing macronutrients and spreading out carbohydrates for better blood glucose management General recommended servings for carbohydrates at meals and snacks Role of physical activity Troubleshooting for [place] Created SMART goals for patient self-care and success. Goals: Call pharmacy on Friday- new Aim for low CHO diet- new Try to be active after you eat- new Follow-up: [facility] follow-up in 2-3 weeks. Emilee Paz RDN, KATHRINEES Certified Diabetes Care and Barrel Raiser Helper P: [phone] Thank you for this referral
== END ==
LOC: DIET 14:33
PROVIDERS: PCP Internal Medicine; Referring Provider Internal Medicine
DX: E11.9 Type 2 diabetes mellitus without complications (principal); Z71.3 Dietary counseling and surveillance; Z79.84 Long term (current) use of oral hypoglycemic drugs; Z79.85 Long-term (current) use of injectable non-insulin antidiabetic drugs
CPT/HCPCS: G0108

== ENCOUNTER → 2023-12-31 16:11 | Outpatient (CLI) | payer OTHER, SELFPAY ==
--- NOTE | 2024-01-14 17:03 | DIAB.FU ---
Follow-up Diabetes Education Assessment Name: Courtney Rucker I Date: 12/31/23 Time: 430-510p Dx: Type II Diabetes Courtney presents for follow-up Dm visit. Reports feeling much better today about Dm diagnosis. Started Trulicity at 0.75mg dose with little nausea but tolerable per report. Trying to eat more salads and veggies. Eating mostly pro and veggies per report. States she is doing better with water intake now. Skipping juice more often with meals. Diet recall: 12p: eggs, cheese, avocado, +/-OJ x <8 oz 7-8p: veggies, protein, +/- 1/2-1c brown rice water 32-40oz Noticed reduced appetite with Trulicity. Really loves fruit and keeping to 1c at sitting. Physical Activity: Water aerobics 2x per week, workout 2x per week on treadmill and wts. Self-Monitoring Blood Glucose: None. Has old meter. Does not love SMBG, but willing to try. use to help her check. Will call RD with meter name and date of supplies. Diabetes Medications: 0.75mg Truclicity Pertinent Labs: HGA1c: 8.1% 06/2023 9.5% 09/2023 Past Medical History: (Last Updated 10/17/23 @ 14:53 by Mundo Garcia MD) Abnormal Pap smear of cervix 37 years old Allergies BMI 37.0-37.9, adult Chicken pox Child Chronic back pain (~2016) Depression Diabetes mellitus (~05/2020) Foot pain (~2016) H/O adenomatous polyp of colon Hearing loss Need to get hearing checked Hypertension (~2020) Off and on Hyperthyroidism Hypothyroidism IPMN (intraductal papillary mucinous neoplasm) MRCP July 2023 Kidney stones (~2004) Mixed hyperlipidemia Obstructive sleep apnea Recurrent sinusitis Restless leg syndrome Uncontrolled type 2 diabetes mellitus with hyperglycemia Intervention: This participant was very receptive. Provided appropriate educational handouts. Discussed the following topics: Meal timing / frequency SMBG benefits and supplies Hydration and impact on BG Created SMART goals for patient self-care and success. Goals: Call pharmacy on Friday- met Aim for low CHO diet- met Try to be active after you eat- in progress Eat 2-3x per day- new Call RD about strips and type of meter- new Aim for 40oz water- new Follow-up: RDN [facility] follow-up in 2-3 weeks Emilee Paz RDN, SU Certified Diabetes Care and Vegetable Worker P: [phone] Thank you for this referral
== END ==
LOC: DIET 16:11
PROVIDERS: PCP Internal Medicine; Referring Provider Internal Medicine
DX: E11.9 Type 2 diabetes mellitus without complications (principal); Z79.85 Long-term (current) use of injectable non-insulin antidiabetic drugs; Z71.3 Dietary counseling and surveillance
CPT/HCPCS: G0108

== ENCOUNTER → 2024-01-16 15:40 | Outpatient (CLI) | payer OTHER, SELFPAY ==
--- NOTE | 2024-01-16 15:50 | DIAB.FU ---
Follow-up Diabetes Education Assessment Name: Courtney Rucker I Date: 01/16/24 Time: 296-814 Dx: Type II Diabetes Courtney presents for follow-up Dm visit. Took last dose of Trulicity, needs rf, PCP office r/s recent visit for mid January. Seems likely that PCP was going to evaluate GLP1 rx at this visit. Still some nausea with injection, but tolerable. Eating less bread. Diet recall: wake 10a 12p: eggs, 1 toast 1230-2p: apple OR 3-4 chunks pineapple 7-8p: veggies, protein, +/- 1/2-1c brown rice OR pasta x 1.3 cup water 32oz Not drinking juice. Focusing on veggies. Needing reminder on non starch v starch veg. Physical Activity: Water aerobics 2x per week, workout 2x per week on treadmill and wts. Self-Monitoring Blood Glucose: None. Has old meter. Needs new supplies. Strips are . RD messaged PCP workgroup. Diabetes Medications: 0.75mg Truclicity Pertinent Labs: HGA1c: 8.1% 06/2023 9.5% 09/2023 Past Medical History: (Last Updated 10/17/23 @ 14:53 by Mundo Garcia MD) Abnormal Pap smear of cervix 37 years old Allergies BMI 37.0-37.9, adult Chicken pox Child Chronic back pain (~2016) Depression Diabetes mellitus (~05/2020) Foot pain (~2016) H/O adenomatous polyp of colon Hearing loss Need to get hearing checked Hypertension (~2020) Off and on Hyperthyroidism Hypothyroidism IPMN (intraductal papillary mucinous neoplasm) MRCP July 2023 Kidney stones (~2004) Mixed hyperlipidemia Obstructive sleep apnea Recurrent sinusitis Restless leg syndrome Uncontrolled type 2 diabetes mellitus with hyperglycemia Intervention: This participant was very receptive. Provided appropriate educational handouts. Discussed the following topics: Carb counting review SMBG supplies troubleshooting Starch v non starch veggies Hydration recs and strategies Pairing CHO and PRO Troubleshooting GLP1 rx Created SMART goals for patient self-care and success. Goals: Eat 2-3x per day- met Call RD about strips and type of meter- met Aim for 40oz water- in progress Add protein to each meal/snack- new Focus on non starchy veggies- new Reach out to provider next week prn- new Follow-up: [facility] follow-up in 4 weeks Emilee Paz RDN, SU Certified Diabetes Care and Real Estate Appraiser Supervisor P: [phone] Thank you for this referral
== END ==
PROVIDERS: PCP Internal Medicine; Referring Provider Internal Medicine
DX: E11.9 Type 2 diabetes mellitus without complications (principal); Z79.85 Long-term (current) use of injectable non-insulin antidiabetic drugs; Z71.3 Dietary counseling and surveillance
CPT/HCPCS: G0108

== ENCOUNTER → 2024-02-10 13:39 | Outpatient (CLI) | payer OTHER, SELFPAY ==
--- NOTE | 2024-02-10 13:52 | DIAB.MNTFU ---
Follow-up Diabetes Medical Nutrition Therapy Assessment Name: Courtney Rucker I Date: 02/10/24 Time: 2-250p Dx: Type II Diabetes Courtney presents for follow-up Dm visit. PCP provided rf on Trulicity. No lapse in meds. Reports less food cravings with Trulicity. Though has a tough time determining what meals to cook since her appetite is suppressed. No longer feels guilt about food on this medication. No new labs recently. Plans to do labs in March. Sometimes eating only 2x per day. Bought nuts for her and her , unsure if salted or unsalted. States bp med increased since last visit-- Losartan doubled to 100mg per EMR. Reports pharmacy did not have rx for meter strips. PCP did place rx, which is in EMR. Today we called the pharmacy, they indicated her insurance denied the strips. Also stated that they may not be able to order Trulicity 1.5mg refills at this time. Also indicated that her rx did not have rf. RD messaged PCP team regarding strips and GLP1 rxs. Has a water bottle, but unclear how much is in the bottle. Diet recall: wake 10a a: 2 eggs, 1 toast, +/- marcano 5p: sana 1c tortellini with sausage, peas and carrots OR fish, broccoli, cauliflower, brown rice x 1c sn: nothing or cupcake or applesauce unsweetened or yogurt water 32oz Physical Activity: Water aerobics 1-2x per week, workout 2x per week on treadmill and wts. Self-Monitoring Blood Glucose: got new rx for meter supplies, but issues with pharmacy filling. RD/SU called pharmacy to troubleshoot. Diabetes Medications: 1.5 mg Trulicity Pertinent Labs: HGA1c: 8.1% 06/2023 9.5% 09/2023 Past Medical History: (Last Updated 10/17/23 @ 14:53 by Mundo Garcia MD) Abnormal Pap smear of cervix 37 years old Allergies BMI 37.0-37.9, adult Chicken pox Child Chronic back pain (~2016) Depression Diabetes mellitus (~05/2020) Foot pain (~2016) H/O adenomatous polyp of colon Hearing loss Need to get hearing checked Hypertension (~2020) Off and on Hyperthyroidism Hypothyroidism IPMN (intraductal papillary mucinous neoplasm) MRCP July 2023 Kidney stones (~2004) Mixed hyperlipidemia Obstructive sleep apnea Recurrent sinusitis Restless leg syndrome Uncontrolled type 2 diabetes mellitus with hyperglycemia Nutrition Rx: 1400kcals Carbohydrates: Meal: 30-45g Snacks: 15-30g Sodium: 3924-0040 mg per day Hydration: 40oz Nutrition Diagnosis: -Nutrition and food related knowledge deficit r/t needing MNT for diabetes management aeb pt report and hgA1c of 9.5% - Predicted excessive Na intake r/t likely choosing salted snacks aeb pt report Intervention: This participant was very receptive. Provided appropriate educational handouts. Discussed the following topics: Carb portions Moderation in saturated fats and higher carbs foods GLP1 action and dose Troubleshooting meter strip and GLP1 dose rx Snack options with protein Importance of consistent intake of small freq meal/snack with suppressed appetite. Sodium intake and bp Hydration recs Created SMART goals for patient self-care and success. Goals: Aim for 40oz water- in progress Add protein to each meal/snack- met Focus on non starchy veggies- met Reach out to provider next week prn- d/c Try to eat three times per day- new If nuts are salted, mix with unsalted- new Measure water bottle oz- new Follow-up: [facility] follow-up in 2-3 weeks Emilee Paz RDN, SU Certified Diabetes Care and Industrial Coffee Grinder P: [phone] Thank you for this referral
== END ==
PROVIDERS: PCP Internal Medicine; Referring Provider Internal Medicine
DX: E11.9 Type 2 diabetes mellitus without complications (principal); Z79.85 Long-term (current) use of injectable non-insulin antidiabetic drugs; Z71.3 Dietary counseling and surveillance
CPT/HCPCS: 97803

== ENCOUNTER → 2024-04-28 09:37 | Outpatient (CLI) | payer OTHER, SELFPAY ==
[2024-04-28 10:23] LABS: Hemoglobin A1C% w Est Avg Glu 6.5 % (4.0-6.0)
[2024-04-28 10:35] LABS: Alanine Aminotransferase 34 IU/L (<35); Albumin 4.2 g/dL (3.5-5.0); Albumin Globulin Ratio 1.6 (1.0-2.8); Alkaline Phosphatase 103 U/L (38-126); Aspartate Aminotransferase 31 IU/L (14-36); BUN Creatinine Ratio 12.3 (6-22); Bilirubin Total 0.6 mg/dL (0.2-1.3); Blood Urea Nitrogen 7 mg/dL (7-17); Calcium 9.6 mg/dL (8.4-10.2); Carbon Dioxide 28 mmol/L (22-32); Chloride 104 mmol/L (98-107); Cholesterol 127 mg/dL (140-199); Estimated Glomerular Filt Rate > 60 mL/min (>60); Globulin 2.6 g/dL (1.7-4.1); Glucose 124 mg/dL (80-110); HDL Cholesterol 40 mg/dL (40-60); HEMOLYSIS < 15 (0-50); LDL Cholesterol Calculated 62 mg/dL (<100); Potassium 4.6 mmol/L (3.4-5.1); Sodium 139 mmol/L (137-145); Total Protein 6.8 g/dL (6.3-8.2); Triglycerides 123 mg/dL (35-150)
[2024-04-28 11:54] LABS: Creatinine Urine Random 60.85 mg/dL
[2024-04-28 11:59] LABS: Microalbumin Urine Random 2.6 mg/dL (0-1.6)
== END ==
PROVIDERS: PCP Internal Medicine; Referring Provider Internal Medicine; Visit Provider Internal Medicine
DX: E11.9 Type 2 diabetes mellitus without complications (principal); E78.2 Mixed hyperlipidemia; I10 Essential (primary) hypertension; D21.9 Benign neoplasm of connective and other soft tissue, unspecified
CPT/HCPCS: 36415; 80053; 80061; 82043; 82570; 83036

== ENCOUNTER → 2024-07-28 12:40 | Outpatient (CLI) | payer OTHER, SELFPAY ==
[2024-07-28 14:02] LABS: BUN Creatinine Ratio 21.1 (6-22); Blood Urea Nitrogen 12 mg/dL (7-17); Calcium 9.7 mg/dL (8.4-10.2); Carbon Dioxide 27 mmol/L (22-32); Chloride 102 mmol/L (98-107); Estimated Glomerular Filt Rate > 60 mL/min (>60); Glucose 179 mg/dL (80-110); HEMOLYSIS < 15 (0-50); Potassium 5.1 mmol/L (3.4-5.1); Sodium 139 mmol/L (137-145)
[2024-07-28 14:05] LABS: Influenza A - CEPHEID Flu A NEGATIVE (NEGATIVE); Influenza B - CEPHEID Flu B NEGATIVE (NEGATIVE); Respiratory Syncytial Virus POSITIVE (Negative)
[2024-07-28 14:11] LABS: COVID-19 CEPHEID 4-PLEX PCR Negative (Negative)
[2024-07-28 16:02] LABS: Hemoglobin A1C% w Est Avg Glu 6.7 % (4.0-6.0)
== END ==
PROVIDERS: Nurse Practitioner Family; PCP Internal Medicine; Referring Provider Internal Medicine; Visit Provider Internal Medicine
DX: E11.9 Type 2 diabetes mellitus without complications (principal); I10 Essential (primary) hypertension; R05.9 Cough, unspecified
CPT/HCPCS: 0241U; 36415; 80048; 83036

== ENCOUNTER → 2025-01-02 10:05 | Outpatient (CLI) | payer OTHER, SELFPAY ==
--- NOTE | 2025-01-02 10:06 | DI.MRI.S_ITS ---
PROCEDURE: MR AB PANCREATIC/MRCP PROTOCOL [facility]ICATION[facility] TECHNIQUE: Coronal HASTE through the abdomen, axial 2-D FLASH in- and wtm-rn-maxxy, and breath-hold T2 FSE with fat saturation through the biliary system and pancreas. Oblique coronal and axial thin-slice HASTE, radial thick-slab HASTE centered on the extrahepatic bile ducts. Intravenous secretin: Not requested. COMPARISON: [facility], , MR AB PANCREATIC/MRCP PROTOCOL, 08/13/2023, 18:42. FINDINGS: Image quality: Diagnostic. Gallbladder: No visible gallstones, wall thickening, or surrounding inflammation. Biliary ducts: No biliary dilation. Pancreas: Nondilated pancreatic duct with conventional anatomy and a smooth contour. A finally septated or bilobed cystic structure is seen in the pancreatic body and measures 1.2 by 0.8 cm, slightly smaller. This is closely apposed to the pancreatic duct. Two subcentimeter unilocular cysts in the distal pancreatic tail are not associated with the duct. No peripheral or internal enhancement in any of the cystic structures. No other cystic or solid pancreatic mass. OTHER: Lung bases: Unremarkable. Liver: Mild hepatomegaly and moderate diffuse hepatic steatosis with relative sparing in the gallbladder fossa and pericaval liver. Spleen: Size is within normal limits. Adrenal Glands: No adrenal nodules. Kidneys and Ureters: No hydronephrosis. No solid mass. No complex renal cystic lesion which requires follow up. Stomach and Bowel: Stomach and visible bowel loops are within normal limits. Peritoneum: No abnormal intraperitoneal fluid. No free air. Ventral Wall: No hernia. Abdominal Nodes: No retroperitoneal or mesenteric adenopathy by size criteria. Vessels: The abdominal aorta, IVC, and portal vein are of normal caliber. Bones: No aggressive osseous abnormality. Partially imaged postsurgical changes in the lumbar spine. IMPRESSION: Mildly decreased size of probable side-branch IPMN in the pancreatic body. No change to unilocular, simple appearing pancreatic tail cysts not associated with the pancreatic duct. Moderate hepatic steatosis. Dictated by: Jaki Carver M.D. on 01/03/2025 at 11:49 Approved by: Jaki Carver M.D. on 01/03/2025 at 12:00
== END ==
PROVIDERS: PCP Internal Medicine; Referring Provider Internal Medicine; Visit Provider Internal Medicine
DX: D49.0 Neoplasm of unspecified behavior of digestive system (principal); K86.2 Cyst of pancreas; K76.0 Fatty (change of) liver, not elsewhere classified
CPT/HCPCS: 74183; A9579

== ENCOUNTER 2025-05-16 09:39 | Day surgery (SDC) | payer OTHER, SELFPAY ==
[2025-05-11 14:50] VITALS: BMI 35.5
--- NOTE | 2025-05-16 | PATH_ITS ---
[facility] Accession Number: [id number] No. of containers..01 Tissue . 01 Material submitted: . colon - CECAL POLYPS . 01 Diagnosis: CECAL POLYPS: Tubular adenomas. RO 05/23/2025 1828 Local . 01 Electronically signed: . David Porter MD, PhD, Pathologist NPI- [id number] . 01 Gross description: . Received is one formalin-filled container labeled with the patient's name and labeled cecal polyp. The specimen consists of four fragments of montoya, soft tissue which range in size from less than 0.1 cm to 0.3 x 0.3 x 0.2 cm. all fragments are totally submitted in cassette A1. (DC:[id number]) /RO 05/19/2025 0120 Local . 01 Pathologist provided ICD-10: D12.0 . 01 CPT . 451626 Specimen Comment: A courtesy copy of this report has been sent to [phone] Performed at: [address] [facility] [address], [place], [place] [id number] MD Yordan Grajeda MD Phone: [phone]
[2025-05-16 10:14] VITALS: BP 144/81; PULSE 92; RESP 16; TEMP 36.1; O2SAT 97
[2025-05-16] MEDS: LACTATED RINGERS 1,000 ML 42 ML IV (10:28)
--- NOTE | 2025-05-16 10:57 | PM.HP.IH.1 ---
History of Present Illness History of Present Illness Date Patient Seen: 05/16/25 Chief complaint: Screening Colonoscopy [facility] Medical History (Updated 05/16/25 @ 10:59 by Loyd Hlul MD) HLD (hyperlipidemia) Diabetic nephropathy Depression BMI 37.0-37.9, adult IPMN (intraductal papillary mucinous neoplasm) Mixed hyperlipidemia Obstructive sleep apnea Uncontrolled type 2 diabetes mellitus with hyperglycemia H/O adenomatous polyp of colon Hearing loss Allergies Restless leg syndrome Foot pain (~2016) Chronic back pain (~2016) Chicken pox Recurrent sinusitis Abnormal Pap smear of cervix Kidney stones (~2004) Diabetes mellitus (~05/2020) Hypothyroidism Hyperthyroidism Hypertension (~2020) Surgical History Anesthesia History of lumbosacral spine surgery (~06/19/20) Family History Father Mental health problem Brother Cancer Grandfather History of heart disease Social History household members: spouse Smoking Status: Current every day smoker alcohol intake: never Meds Home Medications and Allergies Home Medications ?Medication ?Instructions ?Recorded ?Confirmed ?Type multivitamin 1 tab PO DAILY 04/08/22 02/18/25 History fluticasone propionate 50 2 spray intranasal BEDTIME PRN 01/29/24 02/18/25 History mcg/actuation nasal spray,suspension blood sugar diagnostic (FreeStyle #100 ea 02/16/24 02/18/25 Rx Lite Strips) atorvastatin 40 mg tablet 40 mg PO DAILY #90 tabs 07/20/24 02/18/25 Rx glipizide 10 mg tablet, extended 10 mg PO BID #180 tabs 08/25/24 02/18/25 Rx release 24 hr citalopram 10 mg tablet (Celexa) 10 mg PO DAILY #30 tabs 11/19/24 02/18/25 Rx dulaglutide 1.5 mg/0.5 mL 1.5 mg (0.5 mL) SUBCUT QWEEK #2 mL 02/18/25 02/18/25 Rx subcutaneous pen injector (Trulicity) losartan 100 mg tablet 100 mg PO DAILY #90 tabs 02/24/25 Rx sodium,potassium,mag sulfates 17.5 See Rx Instructions PO .COMPLEX 04/14/25 Rx gram-3.13 gram-1.6 gram oral soln #354 mL (Suprep Bowel Prep Kit) Allergies Allergy/AdvReac Type Severity Reaction Status Date / Time sulfamethoxazole (From Allergy Severe Hives Verified 05/16/25 10:09 ) trimethoprim (From ) Allergy Severe Hives Verified 05/16/25 10:09 lisinopril AdvReac Intermediate Cough Verified 05/16/25 10:09 metformin AdvReac Intermediate Nausea Verified 05/16/25 10:09 Erythromycin AdvReac Intermediate GI Upset Uncoded 05/16/25 10:09 Exam Vital Signs (past 8 hours): - 05/16/25 10:14 Temperature 96.9 F L Pulse Rate 92 H Respiratory Rate 16 Blood Pressure 144/81 H Pulse Oximetry 97 Oxygen Delivery Method Room Air Oxygen Delivery Method Room Air Narrative Exam Narrative: Oropharynx free of lesions Chest clear to auscultation percussion Cardiac exam reveals no S3 or murmur Objective Labs Labs: Laboratory Results - last 24 hr 05/16/25 10:18 POC Whole Bld Glucose 167 H Assessment & Plan Assessment and plan (1) Colon cancer screening: Status: Acute Plan History of colon polyps need for follow-up colonoscopy. Risks, benefits, alternatives have been explained. Time-Based Coding :: [TOTAL MINUTES] spent with patient and on the chart (including review of chart, obtaining history, exam, reviewing outside data, placing orders, documenting exam and treatment plan, and counseling patient) on [DATE]. PROFEE Librarian Special Collections Document charge(s): No
--- NOTE | 2025-05-16 10:59 | P.OP.COLON_ITS ---
Operative Date/Time/Diagnoses Date of procedure: 05/16/25 Time of procedure: 11:23 Pre-op diagnosis: Colon cancer screening with history of polyps Post-op diagnosis: same Procedure & Clinicians Study performed: Colonoscopy Same procedure(s) as scheduled: Yes Indications: History of polyps Surgeon: Loyd Hull Anesthesia Type: Other Procedure Notes Procedure in detail: After informed consent was obtained the patient was placed in left lateral decubitus position. The video colonoscope was introduced the rectum slowly advanced cecum. Preparation was good. On slow withdrawal mucosa was carefully examined. The scope was removed. The patient tolerated procedure well. Blood loss none Complications none Sedation mac Findings 1. 8 mm polyp in the base of the cecum. Removed 1st with small snare and the remainder removed with Jumbo biopsy forceps. 2. Rare diverticular disease 3. Otherwise negative colonoscopy to cecum Will be in touch regarding biopsies but I think she should have follow-up colono scopy in 3-5 years Estimated Blood Loss: 0 Complications: none
[2025-05-16 11:20] VITALS: BP 109/55; PULSE 77; RESP 15; TEMP 36.2; O2SAT 90
[2025-05-16 11:25] VITALS: BP 117/69; PULSE 75; RESP 15; TEMP 36.2; O2SAT 97
[2025-05-16 11:31] VITALS: BP 103/47; PULSE 75; RESP 16; TEMP 36.2; O2SAT 95
[2025-05-16 11:47] VITALS: BP 111/69; PULSE 75; RESP 18; TEMP 36.2; O2SAT 96
== END 2025-05-16 12:25 | disposition home or self-care (01) ==
PROVIDERS: PCP Internal Medicine; Referring Provider Internal Medicine Gastroenterology; Visit Provider Internal Medicine Gastroenterology
PROC: 0DJD8ZZ Inspection of Lower Intestinal Tract, Via Natural or Artificial Opening Endoscopic (ICD-10-PCS; CPT 45378; principal; 2025-05-16 11:00)
DX: Z12.11 Encounter for screening for malignant neoplasm of colon (principal); K57.30 Diverticulosis of large intestine without perforation or abscess without bleeding; Z86.0101 Personal history of adenomatous and serrated colon polyps; I10 Essential (primary) hypertension; E78.5 Hyperlipidemia, unspecified; E11.65 Type 2 diabetes mellitus with hyperglycemia; E11.21 Type 2 diabetes mellitus with diabetic nephropathy; F32.A Depression, unspecified; F17.200 Nicotine dependence, unspecified, uncomplicated; Z79.85 Long-term (current) use of injectable non-insulin antidiabetic drugs; Z79.84 Long term (current) use of oral hypoglycemic drugs; D12.0 Benign neoplasm of cecum
CPT/HCPCS: 45385; 82962; J2704; J7120